=== PATIENT | female | born 1990 | race Caucasian/White ===

== ENCOUNTER 2016-09-12 06:31 | Emergency (ER) | payer MEDICAID ==
[2016-09-12] MEDS ORDERED: Sodium Chloride 0.9% 1,000 ML IV ONE ×2 (07:17→09:37)
[2016-09-12] MEDS ORDERED: Sodium Chloride 0.9% 1,000 ML ONE (07:34)
[2016-09-12 07:38] LABS: BASO % 0.2 % (0.0-2.0); EOS % 0.1 % (0.0-4.0); HEMATOCRIT 39.4 % (34.0-47.0); LYMPH # 0.8 K/uL (1.0-4.3); LYMPH % 3.8 % (20.0-40.0); MEAN CORPUSCULAR HEMOGLOBIN 28.7 pg (27.0-31.0); MEAN CORPUSCULAR HGB CONC 33.7 g/dL (33.0-37.0); MONO # 0.3 K/uL (0.0-0.8); MONO % 1.4 % (0.0-10.0); PLATELET COUNT 427 K/uL (130-400); RED CELL DISTRIBUTION WIDTH 12.9 % (11.5-14.5); WHITE BLOOD COUNT 20.3 K/uL (4.8-10.8)
--- NOTE | 2016-09-12 07:44 | C.PDOC ---
History Of Present Illness 26 y/o female, whose PMHx includes asthma, presents to the ED for evaluation of abdominal pain. Patient states that she was treated for ear, throat, and sinus infection 2 weeks ago. States she was initially given Zithromax without any improvement, and is now taking Clindamycin prescribed by PMD. Patient is now complaining of abdominal pain, and vomiting for the last 2 days and fever for the last 4 days. Otherwise, denies any diarrhea, urinary symptoms, or any other associated symptoms at this time. Time Seen by Provider: 09/12/16 07:08 Chief Complaint (Nursing): Abdominal Pain History Per: Patient History/Exam Limitations: no limitations Onset/Duration Of Symptoms: Days (4) Current Symptoms Are (Timing): Still Present Location Of Pain/Discomfort: Epigastric Radiation Of Pain To:: None Quality Of Discomfort: "Pain" Associated Symptoms: Fever, Nausea, Vomiting. denies: Diarrhea, Loss Of Appetite, Back Pain, Chest Pain, Constipation, Urinary Symptoms Exacerbating Factors: None Alleviating Factors: None Recent travel outside of the [place]: No Additional History Per: Patient Abnormal Vaginal Bleeding: No Past Medical History Reviewed: Historical Data, Nursing Documentation, Vital Signs Vital Signs: Last Vital Signs Temp 97.9 F 09/12/16 10:52 Pulse 78 09/12/16 10:52 Resp 18 09/12/16 10:52 BP 117/73 09/12/16 10:52 Pulse Ox 99 09/12/16 10:52 - Medical History PMH: Asthma Denies: Chronic Kidney Disease Surgical History: No Surg Hx - [facility] Procedures INTRANAS LES DESTRUCTION (05/04/14) Family History: States: Unknown Family Hx - Social History Hx Tobacco Use: No Hx Alcohol Use: No Hx Substance Use: No - Immunization History Hx Tetanus Toxoid Vaccination: No Hx Influenza Vaccination: Yes (2015) Hx Pneumococcal Vaccination: No Review Of Systems Except As Marked, All Systems Reviewed And Found Negative. Constitutional: Positive for: Fever Gastrointestinal: Positive for: Nausea, Vomiting, Abdominal Pain. Negative for : Diarrhea, Constipation, Hematemesis Genitourinary: Negative for: Dysuria, Frequency, Hematuria Musculoskeletal: Negative for: Back Pain Skin: Negative for: Rash, Bruising Physical Exam - Physical Exam Appears: Non-toxic, No Acute Distress Skin: Normal Color, Warm, Dry Head: Atraumatic, Normacephalic Eye(s): bilateral: Normal Inspection Oral Mucosa: Moist Neck: Normal ROM, Supple Cardiovascular: Rhythm Regular, No Murmur Respiratory: Normal Breath Sounds, No Rales, No Rhonchi, No Wheezing Gastrointestinal/Abdominal: Soft, Tenderness (mild epigastric), No Distention, No Guarding, No Rebound Extremity: Normal ROM Extremity: Bilateral: Atraumatic, Normal ROM Neurological/Psych: Oriented x3, Normal Speech ED Course And Treatment - Laboratory Results Result Diagrams: 09/12/16 07:34 09/12/16 07:34 Lab Interpretation: Abnormal Urine POC: Negative O2 Sat by Pulse Oximetry: 97 (RA) Pulse Ox Interpretation: Normal Progress Note: Blood work, urinalysis ordered and reviewed. Patient was given Pepcid, Reglan, and IV fluids x 2 liters. On re-eval, pt reports improvement of pain, no acute distress. Patient advised to follow up with PMD or clinic. Return to ED if any increase symptoms Reassessment Condition: Improved Disposition Counseled Patient/Family Regarding: Studies Performed, Diagnosis, Need For Followup, Rx Given - Disposition Referrals: William Gonzalez MD [Staff Provider] - [email or web address] [Outside] [facility] [Outside] Disposition: HOME/ ROUTINE Disposition Time: 11:00 Condition: IMPROVED Additional Instructions: Return to ED if any increase symptoms Prescriptions: Ondansetron ODT [Zofran ODT] 1 odt PO BID PRN #6 odt PRN Reason: Nausea/Vomiting Instructions: Acute Nausea and Vomiting (ED) Forms: [facility] ([place]orese) - POA Present On Arrival: None - Clinical Impression Clinical Impression: Nausea, Vomiting - PA / FURNACE LINER / Resident Statement MD/DO has reviewed & agrees with the documentation as recorded. - Scribe Statement The provider has reviewed the documentation as recorded by the Fanyibvanessa Peterson All medical record entries made by the Fanyibvanessa were at my direction and personally dictated by me. I have reviewed the chart and agree that the record accurately reflects my personal performance of the history, physical exam, medical decision making, and the department course for this patient. I have also personally directed, reviewed, and agree with the discharge instructions and disposition.
[2016-09-12 07:46] LABS: CHLORIDE 105 mmol/L (98-107)
[2016-09-12 07:47] LABS: POTASSIUM 4.2 mmol/L (3.6-5.2); SODIUM 140 mmol/L (132-148)
[2016-09-12 07:49] LABS: ALB/GLOB RATIO 1.1 (1.0-2.1); ALKALINE PHOSPHATASE 110 U/L (38-126); AST/SGOT 20 U/L (14-36); BILIRUBIN,TOTAL 0.5 mg/dL (0.2-1.3); BLOOD UREA NITROGEN 13 mg/dL (7-17); CARBON DIOXIDE 19 mmol/L (22-30); GFR AFRICAN-AMERICAN > 60; TOTAL PROTEIN 7.8 g/dL (6.3-8.3)
[2016-09-12 07:50] LABS: ALT/SGPT 24 U/L (9-52); CALCIUM 9.6 mg/dl (8.6-10.4); GLUCOSE,RANDOM 138 mg/dL (65-105)
[2016-09-12 07:51] LABS: RBC URINE < 1 /hpf (0-3); URINE BILIRUBIN NEGATIVE (NEGATIVE); URINE BLOOD NEGATIVE (NEGATIVE); URINE COLOR Yellow (YELLOW); URINE GLUCOSE (UA) NORMAL (Normal); URINE KETONE NEGATIVE (NEGATIVE); URINE LEUKOCYTE ESTERASE NEG Leu/uL (Negative); URINE PROTEIN NEGATIVE (NEGATIVE); URINE UROBILINOGEN NORMAL mg/dL (0.2-1.0); WBC URINE < 1 /hpf (0-5)
[2016-09-12 08:06] LABS: NEUTROPHIL 94 % (50-75); TOTAL CELLS COUNTED 100
[2016-09-12 09:10] VITALS: RESP 18
[2016-09-12 10:53] VITALS: BP 117/73; PULSE 78; TEMP 97.9
[2016-09-12 14:22] VITALS: O2SAT 97
== END 2016-09-12 10:57 | disposition home or self-care (01) ==
LOC: C.ER 06:31
DX: R11.2 Nausea with vomiting, unspecified (principal)
CPT/HCPCS: 80053; 81001; 83690; 84703; 85025; 96361; 96374; 96375; 99285; J2765; J7040

== ENCOUNTER 2016-10-07 05:21 | Emergency (ER) | payer MEDICAID ==
[2016-10-07] MEDS ORDERED: Sodium Chloride 0.9% 1,000 ML IV STA (05:55)
[2016-10-07] MEDS ORDERED: Sodium Chloride 0.9% 1,000 ML ONE (06:13)
[2016-10-07] MEDS ORDERED: Morphine 4 MG/ML VIAL ONE (06:14)
[2016-10-07 06:16] LABS: URINE BILIRUBIN NEGATIVE (NEGATIVE); URINE BLOOD NEGATIVE (NEGATIVE); URINE COLOR Colorless (YELLOW); URINE GLUCOSE (UA) NORMAL (Normal); URINE KETONE NEGATIVE (NEGATIVE); URINE LEUKOCYTE ESTERASE NEG Leu/uL (Negative); URINE PROTEIN NEGATIVE (NEGATIVE); URINE UROBILINOGEN NORMAL mg/dL (0.2-1.0); WBC URINE < 1 /hpf (0-5)
--- NOTE | 2016-10-07 06:16 | C.PDOC ---
History Of Present Illness 26 year old female presents to the ED with complaints of left ear pain for a few months. Patient states she was seen in the ED for a left ear infection and was prescribed Zithromax. She then saw an ENT whom changed the medication to clarithromycin. Patient notes no relief and was then prescribed augmentin but pain persisted. Upon completing augmentin, patient began to feel pain in the left leg. Patient went to PMD six days ago and was told pain would improve but it has not. She now has left sided numbness and tingling to upper and lower extremity, left sided chest pain, left hip, and left calf pain. Patient states temperature stays at approximately 99.8 degrees. She denies any injuries, trauma , fever, nausea, vomiting, or shortness of breath. Time Seen by Provider: 10/07/16 05:44 Chief Complaint (Nursing): Chest Pain History Per: Patient History/Exam Limitations: no limitations Onset/Duration Of Symptoms: Persistent Current Symptoms Are (Timing): Still Present Quality: "Pain" Associated Symptoms: denies: Nausea, Dyspnea, Diaphoresis, Syncope Recent travel outside of the [place]: No Additional History Per: Prior Records Past Medical History Reviewed: Historical Data, Nursing Documentation, Vital Signs Vital Signs: Last Vital Signs Temp 97.9 F 10/07/16 05:30 Pulse 90 10/07/16 05:30 Resp 20 10/07/16 05:30 BP 128/71 10/07/16 05:30 Pulse Ox 99 10/07/16 06:30 - Medical History PMH: Asthma - [facility] Procedures INTRANAS LES DESTRUCTION (05/04/14) Family History: States: Unknown Family Hx - Social History Hx Tobacco Use: No Hx Alcohol Use: No Hx Substance Use: No - Immunization History Hx Tetanus Toxoid Vaccination: No Hx Influenza Vaccination: Yes (2015) Hx Pneumococcal Vaccination: No Review Of Systems Constitutional: Negative for: Fever, Chills ENT: Positive for: Ear Pain (left ) Cardiovascular: Positive for: Chest Pain. Negative for: Palpitations Respiratory: Negative for: Cough, Shortness of Breath Gastrointestinal: Negative for: Nausea, Vomiting Musculoskeletal: Positive for: Arm Pain (left arm ), Leg Pain (left leg including hip and calf ) Neurological: Positive for: Weakness, Numbness (and tingling sensation to left side of body ) Physical Exam - Physical Exam Appears: Non-toxic, No Acute Distress Skin: Warm, Dry Head: Atraumatic Eye(s): bilateral: Normal Inspection, EOMI Oral Mucosa: Moist Neck: Supple Chest: Symmetrical, No Deformity, Tenderness (left chest wall tenderness extending to under left arm area ) Cardiovascular: Rhythm Regular, No Murmur Respiratory: Normal Breath Sounds, No Rales, No Rhonchi, No Wheezing Extremity: Normal ROM, Tenderness (Mild left hip tenderness to the lateral aspect. ), No Pedal Edema, Calf Tenderness (left calf tenderness ), Capillary Refill (good capillary refill, less bryan two seconds), No Deformity, No Swelling , Other (Left arm is non-tender ) Neurological/Psych: Oriented x3, Normal Speech, Normal Cognition, No Normal Sensation (decreased sensation ), Other (Decreased strength, 3/5 strength on the left side. ) ED Course And Treatment - Laboratory Results Result Diagrams: 10/07/16 06:13 10/07/16 06:13 ECG: Interpreted By Me, Viewed By Me ECG Rhythm: Sinus Rhythm ECG Interpretation: No Acute Changes Rate From EC O2 Sat by Pulse Oximetry: 99 (room air) - CT Scan/US CT head Other Rad Studies (CT/US): Read By Radiologist, Radiology Report Reviewed CT/US Interpretation: EXAM: CT Abdomen and Pelvis Without Intravenous Contrast. EXAM DATE/TIME: 10/07/2016 4:46 AM. CLINICAL HISTORY: 36 years old , female; Pain; Abdominal pain; Flank; Left lower quadrant (llq); Additional info: Pain right. flank. TECHNIQUE: Axial computed tomography images of the abdomen and pelvis without intravenous contrast. All CT. scans at this facility use one or more dose reduction techniques, viz.: automated exposure control;. ma/kV adjustment per patient size (including targeted exams where dose is matched to indication; i.e. head); or iterative reconstruction technique. Coronal and sagittal reformatted images were created and reviewed. COMPARISON: CT - ABD PELVIS W/O PO OR IV CONT 06/19/2015 6:21:24 PM. FINDINGS: Bilateral breast implants. The liver, spleen, and pancreas appear grossly normal on this non-contrast study. No perinephric stranding. No hydronephrosis. No obstructing calculi. The previously seen right UVJ. calculus is no longer present. Stable pelvic phleboliths are noted. Colonic diverticulosis. A normal appendix is identified coronal images 48 - 55. Ovarian follicles are noted. IMPRESSION: No acute findings. Thank you for allowing us to participate in the care of your patient. Dictated and Authenticated by: Abigail Abrams MD. 10/07/2016 6:12 AM Eastern Time ([place] & [place]) Progress Note: Head CT, EKG, CXR, left hip X-Ray, Venous Scan and labs were ordered. Patient was given morphine and IV fluids. Disposition - Disposition Disposition Time: 06:47 Condition: STABLE Forms: [facility] (Czech) - Clinical Impression Clinical Impression: Chest pain, Paresthesia of left arm and leg, Leg pain, left - Scribe Statement The provider has reviewed the documentation as recorded by the Scribe Veronica Gomez All medical record entries made by the Scribe were at my direction and personally dictated by me. I have reviewed the chart and agree that the record accurately reflects my personal performance of the history, physical exam, medical decision making, and the department course for this patient. I have also personally directed, reviewed, and agree with the discharge instructions and disposition. Physician Patient Turnover Patient Signed Over To: Stacey Medina Handoff Comments: hip and CXR, LLE duplex are pending.
[2016-10-07 06:19] LABS: BASO % 0.4 % (0.0-2.0); EOS # 0.1 K/uL (0.0-0.7); EOS % 1.5 % (0.0-4.0); HEMATOCRIT 38.5 % (34.0-47.0); LYMPH # 3.4 K/uL (1.0-4.3); LYMPH % 36.9 % (20.0-40.0); MEAN CELL VOLUME 85.1 fL (81.0-99.0); MEAN CORPUSCULAR HEMOGLOBIN 28.8 pg (27.0-31.0); MEAN CORPUSCULAR HGB CONC 33.8 g/dL (33.0-37.0); MEAN PLATELET VOLUME 7.8 fL (7.2-11.7); MONO % 11.3 % (0.0-10.0); NRBC % 0.1 % (0.0-2.0); RED CELL DISTRIBUTION WIDTH 13.5 % (11.5-14.5); WHITE BLOOD COUNT 9.3 K/uL (4.8-10.8)
[2016-10-07 06:26] LABS: CHLORIDE 102 mmol/L (98-107); POTASSIUM 4.1 mmol/L (3.6-5.2); SODIUM 141 mmol/L (132-148)
[2016-10-07 06:28] LABS: GFR AFRICAN-AMERICAN > 60
[2016-10-07 06:29] LABS: ALB/GLOB RATIO 1.1 (1.0-2.1); ALKALINE PHOSPHATASE 117 U/L (38-126); ALT/SGPT 26 U/L (9-52); AST/SGOT 21 U/L (14-36); BILIRUBIN,TOTAL 0.5 mg/dL (0.2-1.3); BLOOD UREA NITROGEN 16 mg/dL (7-17); CARBON DIOXIDE 24 mmol/L (22-30); GLUCOSE,RANDOM 95 mg/dL (65-105); TOTAL PROTEIN 7.5 g/dL (6.3-8.3)
[2016-10-07 06:30] LABS: CALCIUM 9.6 mg/dl (8.6-10.4)
--- NOTE | 2016-10-07 06:41 | CT ---
EXAM: CT Head Without Intravenous Contrast EXAM DATE/TIME: 10/07/2016 5:56 AM CLINICAL HISTORY: 26 years old, female; Signs and symptoms; Numbness / parasthesia; Left; Additional info: Left sided numbness TECHNIQUE: Axial computed tomography images of the head/brain without intravenous contrast. All CT scans at this facility use one or more dose reduction techniques, viz.: automated exposure control; ma/kV adjustment per patient size (including targeted exams where dose is matched to indication; i.e. head); or iterative reconstruction technique. Coronal and sagittal reformatted images were created and reviewed. COMPARISON: No relevant prior studies available. FINDINGS: No intracranial hemorrhage. No intracranial edema. No evidence of infarct. The sinuses and mastoid air cells are clear. IMPRESSION: No acute findings.
--- NOTE | 2016-10-07 07:36 | RAD ---
PROCEDURE: CHEST RADIOGRAPH, 1 VIEW HISTORY: left CP COMPARISON: Chest CT with contrast 08/13/2013 FINDINGS: LUNGS: Clear. PLEURA: No pneumothorax or pleural fluid seen. CARDIOVASCULAR: Normal. OSSEOUS STRUCTURES: No significant abnormalities. VISUALIZED UPPER ABDOMEN: Normal. OTHER FINDINGS: None. IMPRESSION: No acute cardiopulmonary cardiopulmonary disease or significant interval change 08/13/2013.
--- NOTE | 2016-10-07 07:39 | RAD ---
PROCEDURE: Left Hip Radiographs. HISTORY: atraumatic pain COMPARISON: None. FINDINGS: BONES: Normal. No fracture. No suspicious lytic or blastic change. Incidental note is made of a bone island in the intertrochanteric region of the proximal right femur. Frontal view of the pelvic ring appears normal with no fracture subluxation or dislocation. The pubic symphysis appears intact. Local soft tissues are diffusely unremarkable. JOINTS: Normal. SOFT TISSUES: Normal. OTHER FINDINGS: None. IMPRESSION: Normal radiographs of left hip.
[2016-10-07 10:01] VITALS: BP 106/72; PULSE 75; RESP 18; TEMP 98; O2SAT 98
--- NOTE | 2016-10-09 10:41 | VASCLAB ---
PROCEDURE: Left Lower Extremity Venous Duplex Exam. [employer] Assistant. HISTORY: Left calf pain PRIORS: None. TECHNIQUE: Left common femoral, femoral, popliteal and posterior tibial, peroneal and great saphenous veins were evaluated. Flow was assessed with color Doppler, compressibility, assessment of phasic flow and augmentation response. Report prepared by CATIE Jeffries FINDINGS: LEFT: 1. Common Femoral Vein: 1.1. Compressibility - Fully compressible: Thrombus - None : Flow - Phasic: Augmentation -Normal: Reflux - None. 2. Femoral Vein: 2.1. Compressibility - Fully compressible: Thrombus - None: Flow - Phasic: Augmentation -Normal: Reflux - None. 3. Popliteal Vein: 3.1. Compressibility - Fully compressible: Thrombus - None: Flow - Phasic: Augmentation -Normal: Reflux - None. 4. Posterior Tibial Vein: 4.1. Compressibility - Fully compressible: Thrombus - None: Flow - Phasic: Augmentation -Normal: Reflux - None. 5. Peroneal Vein: 5.1. Compressibility - Fully compressible: Thrombus - None: Flow - Phasic: Augmentation -Normal: Reflux - None. 6. Great Saphenous Vein: 6.1. Compressibility - Fully compressible: Thrombus - None: Flow - Phasic: Augmentation - Normal: Reflux - None. OTHER FINDINGS: IMPRESSION: No evidence of deep or superficial vein thrombosis of the left lower extremity with excellent venous flow. Normal valve function noted of the left side. Normal venous flow noted in the right common femoral vein.
--- NOTE | 2016-10-09 19:44 | CARD ---
APPROVED REPORT EKG Measurement Heart [id number] <Conclusion> Normal sinus rhythm Normal ECG
== END 2016-10-07 10:12 | disposition home or self-care (01) ==
LOC: C.ER 05:21
DX: R07.9 Chest pain, unspecified (principal); R20.9 Unspecified disturbances of skin sensation; M79.662 Pain in left lower leg
CPT/HCPCS: 70450; 71010; 73502; 80053; 81001; 84703; 85025; 85378; 93005; 93971; 96361; 96374; 99284; J2270; J7040

== ENCOUNTER 2017-01-29 21:58 | Emergency (ER) | payer MEDICAID ==
[2017-01-29 22:35] VITALS: BP 104/70; PULSE 87; TEMP 98.5; O2SAT 98
--- NOTE | 2017-01-30 00:21 | C.PDOC ---
History Of Present Illness 26 year old female presents to the ER with a complaint of neck pain for the past 3 days that worsens with movement causing her a headache. Patient reports a Hx of headache but states this feels different because it is more focused on her neck. Patient also reports having multiple episodes of vomiting, she notes her mother has similar symptoms at home. Denies fever, dizziness, weakness, abdominal pain, or recent travel. Time Seen by Provider: 01/29/17 22:54 Chief Complaint (Nursing): Headache History Per: Patient History/Exam Limitations: no limitations Onset/Duration Of Symptoms: Days Current Symptoms Are (Timing): Still Present Preceeding Symptoms: None Associated Symptoms: Vomiting. denies: Photophobia, Blurred Vision, Nausea, Extremity Weakness Recent travel outside of the [place]: No Past Medical History Reviewed: Historical Data, Nursing Documentation, Vital Signs Vital Signs: Last Vital Signs Temp 98.5 F 01/29/17 22:32 Pulse 87 01/29/17 22:32 Resp 20 01/30/17 00:24 BP 104/70 01/29/17 22:32 Pulse Ox 98 01/30/17 00:42 - Medical History PMH: Asthma - [facility] Procedures INTRANAS LES DESTRUCTION (05/04/14) Family History: States: Unknown Family Hx - Social History Hx Tobacco Use: No Hx Alcohol Use: No Hx Substance Use: No - Immunization History Hx Tetanus Toxoid Vaccination: No Hx Influenza Vaccination: Yes (CURRENT) Hx Pneumococcal Vaccination: No Review Of Systems Constitutional: Negative for: Fever, Chills Gastrointestinal: Positive for: Vomiting. Negative for: Abdominal Pain Musculoskeletal: Positive for: Neck Pain Neurological: Positive for: Headache. Negative for: Weakness, Dizziness Physical Exam - Physical Exam Appears: Non-toxic, No Acute Distress Skin: Normal Color, Warm, Dry Head: Atraumatic, Normacephalic Eye(s): bilateral: Normal Inspection, PERRL Ear(s): Bilateral: Normal Oral Mucosa: Moist Throat: Normal, No Erythema Neck: No Midline Cervical Tenderness, Paracervical Tenderness, Supple Chest: Symmetrical, No Tenderness Cardiovascular: Rhythm Regular Respiratory: Normal Breath Sounds, No Wheezing Gastrointestinal/Abdominal: Soft, No Tenderness Neurological/Psych: Oriented x3, Normal Speech ED Course And Treatment O2 Sat by Pulse Oximetry: 98 (Room air) Pulse Ox Interpretation: Normal Progress Note: Flexeril and reglan administered. On reevaluation, patient reports improvement of pain, patient resting comfortably in the ER, in no distress tolerated PO fluids. Will discharge with Rx and instructions to follow up with PMD for further evaluation. Disposition Counseled Patient/Family Regarding: Diagnosis, Need For Followup, Rx Given - Disposition Referrals: Pankaj Stewart MD, PhD [Staff Provider] - Disposition: HOME/ ROUTINE Disposition Time: 00:16 Condition: STABLE Additional Instructions: Take meds as directed Follow up with pMD Return to ER if worse Prescriptions: Cyclobenzaprine [Cyclobenzaprine HCl] 10 mg PO HS #7 tab Metoclopramide [Reglan] 10 mg PO PRN PRN #10 tab PRN Reason: Nausea/Vomiting Tramadol HCl [Ultram] 50 mg PO Q6H #15 tab Instructions: Muscle Spasm (ED) Forms: [facility] (Portuguese) - Clinical Impression Clinical Impression: Headache, Muscle spasms of neck - PA / PSYCHIATRIC CNS / Resident Statement MD/DO has reviewed & agrees with the documentation as recorded. - Scribe Statement The provider has reviewed the documentation as recorded by the Scribvanessa Larios All medical record entries made by the Fanyibvanessa were at my direction and personally dictated by me. I have reviewed the chart and agree that the record accurately reflects my personal performance of the history, physical exam, medical decision making, and the department course for this patient. I have also personally directed, reviewed, and agree with the discharge instructions and disposition.
[2017-01-30 00:25] VITALS: RESP 20
== END 2017-01-30 00:24 | disposition home or self-care (01) ==
LOC: C.ER 21:58
DX: M62.838 Other muscle spasm (principal); R51 Headache